=== PATIENT | male | born 1985 | race Caucasian/White ===

== ENCOUNTER 2022-07-11 12:19 | Emergency (ER) | payer OTHER, SELFPAY ==
[2022-07-11 12:33] VITALS: BP 136/91; PULSE 77; RESP 15; TEMP 37.6; O2SAT 98; BMI 21.9
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
--- NOTE | 2022-07-11 14:15 | PC.NURSE ---
c collar applied in triage
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
[2022-07-11 15:54] VITALS: BP 136/81; PULSE 69; O2SAT 98
== END 2022-07-11 16:10 | disposition home or self-care (01) ==
PROVIDERS: Emergency Provider Student in an Organized Health Care Education/Training Program; PCP Physician Assistant
DX: S16.9XXA Unspecified injury of muscle, fascia and tendon at neck level, initial encounter (principal); R07.89 Other chest pain; V89.2XXA Person injured in unspecified motor-vehicle accident, traffic, initial encounter
CPT/HCPCS: 71046; 72125; 93005; 93010; 99283